=== PATIENT | female | born 1940 | race Caucasian/White ===

== ENCOUNTER 2016-11-26 11:09 | Emergency (ER) | payer MEDICARE ==
[~2016-11-26] VITALS: Ht 154.9 cm; Wt 58.6 kg
[~2016-11-26 11:09] MED LIST: B-121000 MC1 PO; HYDROCHLOR12.5 MG/CA PO; LISINOPRIL20 MG PO; METFORMIN HCL1000 MG PO; PREVACID30 M1 PO; PROMETHAZINE25 M1 RE; ULTRAM50 M1 PO
[2016-11-26] MEDS ORDERED: EC-NAPROSYN500 MG PO (12:59)
[2016-11-26 13:05] VITALS: BP 139/71
== END 2016-11-26 13:14 | disposition home or self-care (01) ==
LOC: ED 11:09
DX: S46.911A Strain of unspecified muscle, fascia and tendon at shoulder and upper arm level, right arm, initial encounter (principal); E11.9 Type 2 diabetes mellitus without complications; I10 Essential (primary) hypertension; E78.00 Pure hypercholesterolemia, unspecified; W01.0XXA Fall on same level from slipping, tripping and stumbling without subsequent striking against object, initial encounter

== ENCOUNTER 2018-06-21 03:25 | Emergency (ER) | payer MEDICARE ==
[~2018-06-21] VITALS: Ht 154.9 cm; Wt 58.8 kg
[~2018-06-21 03:25] MED LIST changes: +EC-NAPROSYN500 MG PO
[2018-06-21 03:55] LABS: HEMATOCRIT 34.5 % (37.0-47.0); HEMOGLOBIN 11.7 g/dl (12.0-16.0); IMMATURE GRANULOCYTES 0.5 % (0.0-5.0); MEAN CELL VOLUME 85.6 fL CALC (80.0-100.0); MEAN CORPUSCULAR HGB CONC 33.9 g/L CALC (32.0-36.0); NEUT# 8.84 thou/uL (2.00-7.15); RED BLOOD COUNT 4.03 mill/uL (4.20-5.60); RED CELL DISTRI WIDTH 12.9 % (11.5-15.5)
[2018-06-21 04:07] LABS: ALBUMIN 4.4 g/dL (3.2-5.0); ALKALINE PHOSPHATASE 89 u/l (38-126); ANION GAP 13 (6-22 (CALC)); BILIRUBIN, TOTAL 0.5 mg/dL (0.0-1.4); BUN 13 mg/dL (8-23); BUN/CREATININE RATIO 16 (12-20 (CALC)); CARBON DIOXIDE 30 mmol/l (22-30); CHLORIDE 99 mmol/l (95-108); CREATININE 0.8 mg/dL (0.5-1.0); GFR > 60 ML/MIN (>=60 (CALC)); GFR FOR AFR.AMER. > 60 ML/MIN (>=60 (CALC)); POTASSIUM 3.9 mmol/l (3.5-5.1); SGOT/AST 29 u/l (9-36); SODIUM 138 mmol/l (137-146); TOTAL PROTEIN 7.8 g/dL (6.3-8.2)
[2018-06-21] MEDS ORDERED: LIPITOR20 MG PO (04:16)
[2018-06-21] MEDS ORDERED: CYANOCOBAL1000 MCG/M IM (04:18)
[2018-06-21] MEDS ORDERED: PREDNISONE10 MG PO (04:42)
[2018-06-21] MEDS ORDERED: AMOXICILLIN500 M2 PO (04:42)
[2018-06-21 04:48] VITALS: BP 158/72
== END 2018-06-21 04:53 | disposition home or self-care (01) ==
LOC: ED 03:25
PROVIDERS: Family Medicine
DX: J32.9 Chronic sinusitis, unspecified (principal); J02.9 Acute pharyngitis, unspecified; R05 Cough; R09.89 Other specified symptoms and signs involving the circulatory and respiratory systems

== ENCOUNTER 2020-05-31 08:32 | Emergency (ER) | payer MEDICARE ==
[~2020-05-31] VITALS: Ht 152.4 cm; Wt 55.9 kg
[~2020-05-31 08:32] MED LIST changes: +AMOXICILLIN500 M2 PO; +CYANOCOBAL1000 MCG/M IM; +LIPITOR20 MG PO; +PREDNISONE10 MG PO
[2020-05-31] MEDS ORDERED: MULTI VIT PO (09:22)
[2020-05-31] MEDS ORDERED: CALCIUM + D3 601 TAB PO (09:23)
[2020-05-31] MEDS ORDERED: FISH OIL1000 MG PO (09:24)
[2020-05-31] MEDS ORDERED: COQ10200 MG PO (09:24)
[2020-05-31] MEDS ORDERED: SYSTANE OU (09:25)
[2020-05-31 10:38] VITALS: BP 163/93
== END 2020-05-31 10:39 | disposition home or self-care (01) ==
LOC: ED 08:32
DX: M25.552 Pain in left hip (principal); I10 Essential (primary) hypertension; E11.9 Type 2 diabetes mellitus without complications; Z79.84 Long term (current) use of oral hypoglycemic drugs

== ENCOUNTER 2020-07-20 18:37 | Emergency (ER) | payer MEDICARE ==
[~2020-07-20] VITALS: Ht 152.4 cm; Wt 53.0 kg
[~2020-07-20 18:37] MED LIST changes: +CALCIUM + D3 601 TAB PO; +COQ10200 MG PO; +FISH OIL1000 MG PO; +MULTI VIT PO; +SYSTANE OU
[2020-07-20 19:49] LABS: HEMATOCRIT 31.6 % (37.0-47.0); HEMOGLOBIN 10.7 g/dl (12.0-16.0); IMMATURE GRANULOCYTES 0.2 % (0.0-5.0); MEAN CELL VOLUME 84.3 fL CALC (80.0-100.0); MEAN CORPUSCULAR HGB 28.5 pG CALC (26.0-32.0); MEAN CORPUSCULAR HGB CONC 33.9 g/dL CAL (32.0-36.0); NEUT# 5.33 thou/uL (2.00-7.15); RED BLOOD COUNT 3.75 mill/uL (4.20-5.60); RED CELL DISTRI WIDTH 13.6 % (11.5-15.5)
[2020-07-20 20:07] LABS: ALBUMIN 4.3 g/dL (3.2-5.0); ALKALINE PHOSPHATASE 78 u/l (38-126); AMYLASE 72 u/l (30-110); ANION GAP 13 (6-22 (CALC)); BILIRUBIN, TOTAL 0.3 mg/dL (0.0-1.4); BUN 10 mg/dL (8-23); BUN/CREATININE RATIO 14 (12-20 (CALC)); CARBON DIOXIDE 28 mmol/l (22-30); CHLORIDE 94 mmol/l (95-108); CREATININE 0.7 mg/dL (0.5-1.0); GFR > 60 ML/MIN (>=60 (CALC)); GFR FOR AFR.AMER. > 60 ML/MIN (>=60 (CALC)); LIPASE 220 u/l (23-300); POTASSIUM 3.7 mmol/l (3.5-5.1); SGOT/AST 27 u/l (9-36); SODIUM 131 mmol/l (137-146)
[2020-07-20 20:08] LABS: ACT PARTIAL THROMBO TIME 25.9 SECONDS (20.0-32.5); INTERNATIONAL NORMALIZED RATIO 1.1 RATIO (0.7-1.3)
[2020-07-20 20:46] LABS: URINE BILIRUBIN - DIPSTICK NEGATIVE (NEGATIVE); URINE BLOOD DIPSTICK NEGATIVE (NEGATIVE); URINE COLOR YELLOW; URINE GLUCOSE - DIPSTICK NEGATIVE (NEGATIVE); URINE KETONE NEGATIVE (NEGATIVE); URINE LEUK ESTERASE NEGATIVE (NEGATIVE); URINE NITRITE - DIPSTICK NEGATIVE (Negative); URINE PH 8.5 (4.5-8.0); URINE PROTEIN - DIPSTICK NEGATIVE (NEG-TRACE); URINE SPECIFIC GRAVITY 1.015; URINE UROBILINOGEN - DIPSTICK 0.2 E.U./dL (0.2)
[2020-07-20 21:20] VITALS: BP 156/79
== END 2020-07-20 22:00 | disposition home or self-care (01) ==
LOC: ED 18:37
DX: I10 Essential (primary) hypertension (principal); E11.9 Type 2 diabetes mellitus without complications; Z79.84 Long term (current) use of oral hypoglycemic drugs; Z20.822 Contact with and (suspected) exposure to COVID-19
CPT/HCPCS: Q9967

== ENCOUNTER 2022-05-01 20:22 | Emergency (ER) | payer MEDICARE ==
[~2022-05-01] VITALS: Ht 152.4 cm; Wt 53.2 kg
[2022-05-01] MEDS ORDERED: NORVASC5 M1 PO (20:42)
[2022-05-01 21:22] LABS: HEMATOCRIT 33.7 % (37.0-47.0); HEMOGLOBIN 11.1 g/dl (12.0-16.0); IMMATURE GRANULOCYTES 0.2 % (0.0-5.0); MEAN CELL VOLUME 84.3 fL CALC (80.0-100.0); MEAN CORPUSCULAR HGB 27.8 pG CALC (26.0-32.0); MEAN CORPUSCULAR HGB CONC 32.9 g/dL CAL (32.0-36.0); NEUT# 3.55 thou/uL (2.00-7.15); RED CELL DISTRI WIDTH 13.6 % (11.5-15.5)
[2022-05-01 21:39] LABS: ALBUMIN 4.2 g/dL (3.2-5.0); ALKALINE PHOSPHATASE 89 u/l (38-126); BUN 22 mg/dL (8-23); BUN/CREATININE RATIO 25 (12-20 (CALC)); CHLORIDE 99 mmol/l (95-108); CREATININE 0.9 mg/dL (0.5-1.0); GFR FOR AFR.AMER. > 60 ML/MIN (>=60 (CALC)); GFR OTHER RACES 60 ML/MIN (>=60 (CALC)); POTASSIUM 4.2 mmol/l (3.5-5.1); SGOT/AST 37 u/l (9-36); SODIUM 133 mmol/l (137-146); TOTAL PROTEIN 7.4 g/dL (6.3-8.2)
[2022-05-01 21:41] LABS: ANION GAP 18 (6-22 (CALC)); BILIRUBIN, TOTAL 0.2 mg/dL (0.0-1.4); CARBON DIOXIDE 20 mmol/l (22-30)
[2022-05-01 21:52] LABS: MYOGLOBIN 54 ng/mL (0 - 62)
[2022-05-01 22:55] LABS: URINE BILIRUBIN - DIPSTICK NEGATIVE (NEGATIVE); URINE BLOOD DIPSTICK NEGATIVE (NEGATIVE); URINE COLOR YELLOW; URINE GLUCOSE - DIPSTICK NEGATIVE (NEGATIVE); URINE KETONE NEGATIVE (NEGATIVE); URINE LEUK ESTERASE NEGATIVE (NEGATIVE); URINE PH 5.5 (4.5-8.0); URINE PROTEIN - DIPSTICK NEGATIVE (NEG-TRACE); URINE SPECIFIC GRAVITY 1.025; URINE UROBILINOGEN - DIPSTICK 0.2 E.U./dL (0.2)
[2022-05-01 22:59] LABS: URINE NITRITE - DIPSTICK NEGATIVE (Negative)
[2022-05-01] MEDS ORDERED: PAXLOVID PO (23:24)
[2022-05-01 23:45] VITALS: BP 151/68
== END 2022-05-01 23:56 | disposition home or self-care (01) ==
LOC: ED 20:22
PROVIDERS: Emergency Medicine
DX: U07.1 COVID-19 (principal); R53.1 Weakness; J02.9 Acute pharyngitis, unspecified; E11.9 Type 2 diabetes mellitus without complications; I10 Essential (primary) hypertension; E78.00 Pure hypercholesterolemia, unspecified; Z79.84 Long term (current) use of oral hypoglycemic drugs